=== PATIENT | male | born 1990 | race Caucasian/White ===

== ENCOUNTER 2021-09-28 17:19 | Emergency (ER) | payer OTHER ==
[~2021-09-28] VITALS: Ht 185.4 cm; Wt 116.1 kg
[2021-09-28 18:12] VITALS: BP 129/76
[2021-09-28] MEDS ORDERED: ACET-8386 PO (20:06)
[2021-09-28] MEDS ORDERED: AMOX-1000 PO (20:06)
[2021-09-28] MEDS ORDERED: IBUP-2213 PO (20:06)
[2021-09-28] MEDS: BACITRACIN OINT 500 UNITS/GM PKT TP ONE (20:40)
[2021-09-28] MEDS: ONDANSETRON 4 MG ODT PO ONE (20:40)
[2021-09-28] MEDS ORDERED: HYDROcodone/APAP 7.5/325 MG 1 TAB ONE (21:10)
[2021-09-28] MEDS ORDERED: IBUPROFEN 600 MG TAB ONE (21:10)
[2021-09-28] MEDS: HYDROcodone/APAP 7.5/325 MG 1 TAB PO ONE (21:15)
[2021-09-28] MEDS: IBUPROFEN 600 MG TAB PO ONE (21:15)
== END 2021-09-28 21:19 | disposition home or self-care (01) ==
LOC: MED 17:19
DX: S02.2XXA Fracture of nasal bones, initial encounter for closed fracture (principal); W22.8XXA Striking against or struck by other objects, initial encounter; Y93.89 Activity, other specified; Y92.89 Other specified places as the place of occurrence of the external cause; Y99.8 Other external cause status
CPT/HCPCS: 70160; 99284; Q0162